=== PATIENT | female | born 1975 ===

== ENCOUNTER 2022-03-20 06:26 | Emergency (ER) | payer SELFPAY ==
[2022-03-20] MEDS ORDERED: KETOROLAC 10 MG TAB PO ONE (08:17)
[2022-03-20] MEDS ORDERED: PENICILLIN G BENZATHINE 1.2 MILLION UNIT/2 ML INJ IM ONE (08:17)
[2022-03-20] MEDS ORDERED: dexAMETHasone 4 MG/ML VIAL PO ONE (08:17)
--- NOTE | 2022-03-20 08:50 | Emergency Department Report ---
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 She states that she has been taking ibuprofen at home but has not had any improvement. She states that she has also had fever, headache, and nausea. She denies cough and any sick contacts MD complaint: sore throat -: Gradual, days(s) (3) Location: throat Severity: severe Severity scale (0 -10): 8 Quality: burning, aching Consistency: constant Worsens with: swallowing Associated Symptoms: fever, pain with swallowing, sore throat. denies: cough, gum swelling, toothache, tinnitus, hearing loss, discharge from ear, rhinorrhea - Related Data Previous Rx's Medication Instructions Recorded Last Taken Type Nystas/Diphen/Xyl Visc/Mylanta 30 ml MM Q4H PRN #240 ml 03/20/22 Unknown Rx [Magic Mouthwash] Allergies Allergy/AdvReac Type Severity Reaction Status Date / Time No Known Allergies Allergy Verified 03/20/22 06:30 ED Dental HPI - General Chief complaint: Sore Throat Stated complaint: SORE THROAT Time Seen by Provider: 03/20/22 07:55 Source: patient Mode of arrival: Ambulatory Limitations: No Limitations - Related Data Previous Rx's Medication Instructions Recorded Last Taken Type Nystas/Diphen/Xyl Visc/Mylanta 30 ml MM Q4H PRN #240 ml 03/20/22 Unknown Rx [Magic Mouthwash] Allergies Allergy/AdvReac Type Severity Reaction Status Date / Time No Known Allergies Allergy Verified 03/20/22 06:30 ED Review of Systems ROS: Stated complaint: SORE THROAT Other details as noted in HPI Comment: All other systems reviewed and negative Constitutional: fever. denies: chills, malaise, weakness Eyes: denies: eye pain, eye discharge ENT: throat pain. denies: ear pain, dental pain, congestion Respiratory: denies: cough, shortness of breath Cardiovascular: denies: chest pain, palpitations Gastrointestinal: nausea. denies: abdominal pain, vomiting Musculoskeletal: denies: back pain Neurological: headache. denies: weakness ED Past Medical Hx - Medications Home Medications: Home Medications Medication Instructions Recorded Confirmed Last Taken Type Nystas/Diphen/Xyl Visc/Mylanta 30 ml MM Q4H PRN #240 ml 03/20/22 Unknown Rx [Magic Mouthwash] ED Physical Exam - General Limitations: No Limitations General appearance: alert, in no apparent distress - Head Head exam: Present: atraumatic, normocephalic - Eye Eye exam: Present: normal appearance. Absent: conjunctival injection, periorbital swelling, periorbital tenderness - Expanded ENT Exam Expanded Throat exam: Positive: tonsillar erythema, tonsillomegaly, tonsillar exudate. Negative: R peritonsillar mass, L peritonsillar mass - Neck Neck exam: Present: tenderness, lymphadenopathy (Anterior cervical) - Respiratory Respiratory exam: Present: normal lung sounds bilaterally. Absent: respiratory distress, wheezes, rales, rhonchi, stridor, chest wall tenderness - Cardiovascular Cardiovascular Exam: Present: tachycardia, normal heart sounds - GI/Abdominal GI/Abdominal exam: Present: soft, normal bowel sounds. Absent: distended, tenderness, guarding, rebound, rigid - Extremities Exam Extremities exam: Present: normal inspection, normal capillary refill - Back Exam Back exam: Present: normal inspection. Absent: CVA tenderness (R), CVA t enderness (L) - Neurological Exam Neurological exam: Present: alert, oriented X3 - Psychiatric Psychiatric exam: Present: normal affect, normal mood - Skin Skin exam: Present: warm, dry, intact, normal color ED Course Vital Signs 03/20/22 06:28 Temperature 99.2 F Pulse Rate 105 H Respiratory 18 Rate Blood Pressure 125/82 O2 Sat by Pulse 96 Oximetry ED Medical Decision Making - Medical Decision Making 46-year-old female with no past medical history presents to the emergency department for evaluation of 3-day history of worsening sore throat. She states that she has been taking ibuprofen at home but has not had any improvement. She states that she has also had fever, headache, and nausea. She denies cough and any sick contacts Patient positive for exudative, erythematous, and edematous tonsils with anterior cervical lymphadenopathy. Patient with low-grade fever after taking ibuprofen prior to arrival. Patient treated with Bicillin 1,200,000 units IM x1, Decadron 8 mg p.o. x1, and Toradol 10 mg p.o. x1. She will be discharged home with Magic mouthwash to use as needed and advised to follow-up with her primary care provider if no improvement or worsening symptoms. She is advised to return to the emergency department as needed. Critical care attestation.: If time is entered above; I have spent that time in minutes in the direct care of this critically ill patient, excluding procedure time. ED Disposition Clinical Impression: Exudative pharyngitis Disposition: HOME / SELF CARE / HOMELESS Is pt being admited?: No Does the pt Need Aspirin: No Condition: Stable Instructions: Strep Throat, Adult, [id number] Additional Instructions: Take medications as prescribed. Use ibuprofen and Tylenol as needed for fever. Follow-up with your primary care provider if no improvement or worsening symptoms. Prescriptions: Nystas/Diphen/Xyl Visc/Mylanta [Magic Mouthwash] 30 ml MM Q4H PRN #240 ml PRN Reason: Sore Throat Referrals: LEORA BROWN MD [Staff Physician] - 3-5 Days Print Language: BENGAL[place]
[2022-03-20 09:09] VITALS: BP 123/86
== END 2022-03-20 09:09 | disposition home or self-care (01) ==
LOC: ED 06:26
DX: J02.9 Acute pharyngitis, unspecified (principal)
CPT/HCPCS: 96372; 99282; J0561; J1100